=== PATIENT | male | born 1995 | race Two or more races ===

== ENCOUNTER 2020-01-12 12:57 | Outpatient (REF) | payer OTHER, SELFPAY ==
[2020-01-12 13:28] LABS: COVID-19 Test Negative (Negative)
== END 2020-01-12 12:58 | disposition home or self-care (01) ==
LOC: HO.LAB 12:57
PROVIDERS: Visit Provider Internal Medicine
DX: Z20.828 Contact with and (suspected) exposure to other viral communicable diseases (principal)
CPT/HCPCS: 87635